=== PATIENT | female | born 1980 | race Caucasian/White ===

== ENCOUNTER 2019-01-08 01:12 | Emergency (ER) | payer OTHER, SELFPAY ==
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
== END 2019-01-08 02:12 | disposition home or self-care (01) ==
LOC: ERS 01:12
DX: S70.12XA Contusion of left thigh, initial encounter (principal); V43.52XA Car driver injured in collision with other type car in traffic accident, initial encounter
CPT/HCPCS: 71045